=== PATIENT | male | born 1955 | race Caucasian/White ===

== ENCOUNTER → 2022-09-06 11:45 | Outpatient (BNVA) | payer MEDICARE, SELFPAY | PROVIDERS: Family Provider Family Medicine; PCP Electrodiagnostic Medicine; Referring Provider Electrodiagnostic Medicine; Visit Provider Internal Medicine | DX: I49.9 Cardiac arrhythmia, unspecified (principal); I10 Essential (primary) hypertension; R06.02 Shortness of breath | CPT/HCPCS: 93270; 99203; 99204 ==

== ENCOUNTER 2022-11-04 11:52 | Outpatient (CLI) | payer MEDICARE, SELFPAY ==
--- NOTE | 2022-11-04 12:15 | USCV_ITS ---
Brock Heath Age: 67 Gender: M : 1955 Exam Date: 11/04/2022 12:25 Ordering Phys: Lloyd Causey M.D ([email or web address]) Technologist: MEI Exam Location: [facility] [place] Indication: SHORTNESS OF BREATH BP: 184 / 108 HR: 70 Rhythm: Sinus Technical Quality: Technically difficult study MEASUREMENTS (Male / Female) Normal Values 2D ECHO LVOT Diameter 2.0 cm LV Ejection Fraction MOD 2C 55.3 % LV Ejection Fraction 2C AL 53.1 % LA Diameter 3.9 cm LA Width 3.6 cm LA Height 4.4 cm RA Width 2.7 cm RA Height 4.8 cm Aorta at Sinotubular Diameter 3.0 cm M-MODE Aortic Annulus Diameter 3.6 cm LA Ao Ratio MM 1.1 MV E Point Septal Separation 0.6 cm DOPPLER AV Peak Velocity 107.0 cm/s LVOT Peak Velocity 117.0 cm/s AV Area Cont Eq vti 4.2 cm squared AV Area Cont Eq pk 3.5 cm squared MV Peak Velocity 94.0 cm/s MV Area PHT 3.7 cm squared Mitral E to A Ratio 0.8 MV E' Velocity 41.5 cm/s Mitral E to MV E' Ratio 9.5 Mitral E to LV E' Lateral Ratio 9.5 Mitral E to LV E' Septal Ratio 9.6 TR Peak Velocity 174.9 cm/s TR Peak Gradient 12.2 mmHg TR Mean Velocity 143.8 cm/s TR Mean Gradient 8.6 mmHg TR Velocity Time Integral 55.1 cm TV Peak E Velocity 58.0 cm/s Right Atrial Pressure 8.0 mmHg Pulmonary Artery Systolic Pressu 20.2 mmHg PV Peak Velocity 88.0 cm/s RV Acceleration Time 0.1 s RV Ejection Time 0.3 s RV AcT/ET 0.3 FINDINGS Left Ventricle Left ventricle is normal in size. Grossly LV systolic function is normal. Grade 1 diastolic dysfunction Right Ventricle Normal in size and function Right Atrium Normal in size Left Atrium Normal in size Mitral Valve Grossly normal. Trace mitral regurgitation. Aortic Valve Grossly normal. No significant stenosis or regurgitation. Tricuspid Valve Not well visualized Pulmonic Valve Not well visualized Pericardium Normal Aorta Normal in size IVC Not visualized CONCLUSIONS Technically very limited quality echocardiogram because of poor ultrasonic windows. LV systolic function is grossly normal. Grade 1 diastolic dysfunction Trace mitral regurgitation No comparison studies are available Lloyd Causey MD (Electronically Signed) Final Date: 15 November 2022 17:41 S
== END 2022-11-04 11:53 | disposition home or self-care (01) ==
LOC: RAD 11:55
PROVIDERS: Family Provider Family Medicine; PCP Electrodiagnostic Medicine; Visit Provider Internal Medicine
DX: R06.02 Shortness of breath (principal)
CPT/HCPCS: 93306

== ENCOUNTER → 2022-12-26 12:47 | Outpatient (BNVA) | payer MEDICARE, SELFPAY | PROVIDERS: Family Provider Family Medicine; PCP Electrodiagnostic Medicine; Visit Provider Internal Medicine | DX: I49.9 Cardiac arrhythmia, unspecified (principal); I10 Essential (primary) hypertension | CPT/HCPCS: 99214 ==

== ENCOUNTER → 2023-09-25 12:28 | Outpatient (BNVA) | payer MEDICARE, SELFPAY | PROVIDERS: Family Provider Family Medicine; PCP Electrodiagnostic Medicine; Visit Provider Internal Medicine | DX: I49.9 Cardiac arrhythmia, unspecified (principal); I10 Essential (primary) hypertension | CPT/HCPCS: 99214 ==

== ENCOUNTER → 2024-06-24 14:59 | Outpatient (BNVA) | payer MEDICARE, SELFPAY | PROVIDERS: Family Provider Family Medicine; PCP Electrodiagnostic Medicine; Visit Provider Internal Medicine | DX: I49.9 Cardiac arrhythmia, unspecified (principal); I10 Essential (primary) hypertension; Z87.891 Personal history of nicotine dependence | CPT/HCPCS: 99213 ==

== ENCOUNTER → 2025-06-23 15:24 | Outpatient (BNVA) | payer MEDICARE, SELFPAY | PROVIDERS: Family Provider Family Medicine; PCP Electrodiagnostic Medicine; Visit Provider Internal Medicine | DX: I10 Essential (primary) hypertension (principal) | CPT/HCPCS: 99214 ==